=== PATIENT | female | born 1935 | race Two or more races ===

== ENCOUNTER 2024-10-08 15:53 | Emergency (ER) | payer MEDICARE ==
[~2024-10-08] VITALS: Ht 160 cm; Wt 56.7 kg
[2024-10-08] MEDS: IV NS 0.9% 1,000 ML BAG IV ONE (16:25)
[2024-10-08 16:42] LABS: ALANINE AMINOTRANSFERASE 29 U/L (12-78); ALKALINE PHOSPHATASE 54 U/L (46-116); ASPARTATE AMINOTRANSFERASE 22 U/L (15-37); BILIRUBIN,TOTAL 0.5 mg/dL (0.2-1.0); CALCIUM, SERUM 8.2 mg/dL (8.5-10.1); CARBON DIOXIDE 23 mmol/L (21-32); CHLORIDE 105 mmol/L (98-107); GLUCOSE 104 mg/dL (74-106); POTASSIUM 4.5 mmol/L (3.5-5.1); SODIUM SERUM 137 mmol/L (136-145); TOTAL PROTEIN, SERUM 6.4 g/dL (6.4-8.2)
[2024-10-08 16:52] LABS: MAGNESIUM 1.9 mg/dL (1.8-2.4)
[2024-10-08 16:54] LABS: ALBUMIN 3.6 g/dL (3.4-5.0); BILIRUBIN,DIRECT 0.1 mg/dL (0.0-0.2)
[2024-10-08 16:58] LABS: BASOPHILS % (AUTO) 0.6 % (0.0-2.0); EOSINOPHILS # (AUTO) 0.1 K/uL (0.0-0.7); EOSINOPHILS % (AUTO) 1.2 % (0.0-6.0); HEMATOCRIT 35 % (33-45); HEMOGLOBIN 11.9 g/dL (11.5-14.8); LYMPHOCYTES # (AUTO) 1.3 K/uL (0.8-4.8); LYMPHOCYTES % (AUTO) 16.9 % (20.0-44.0); MEAN CORPUSCULAR HEMOGLOBIN 31 PG (26.0-33.0); MEAN CORPUSCULAR HGB CONC 34 g/dl (31.0-36.0); MEAN CORPUSCULAR VOLUME 92 fL (82-100); MONOCYTES # (AUTO) 0.4 K/uL (0.1-1.30); MONOCYTES % (AUTO) 5.7 % (2.0-12.0); NEUTROPHILS # (AUTO) 5.7 K/uL (1.8-8.9); NEUTROPHILS % (AUTO) 75.6 % (43.0-81.0); PLATELET COUNT (AUTO) 150 K/uL (150-450); RED BLOOD CELL COUNT(AUTO) 3.83 MIL/uL (4.0-5.2); RED CELL DISTRIBUTION WIDTH 13.9 % (11.5-15.0); WHITE BLOOD COUNT (AUTO) 7.6 K/uL (4.3-11.0)
[2024-10-08 17:05] LABS: THYROID STIMULATING HORMONE 5.41 uIU/mL (0.358-3.74)
[2024-10-08 17:09] LABS: UREA NITROGEN, BLOOD 18 mg/dL (7-18)
[2024-10-08 18:05] VITALS: BP 118/65; TEMP 98.3; O2SAT 99
== END 2024-10-08 18:05 | disposition home or self-care (01) ==
LOC: ER 16:38
DX: R55 Syncope and collapse (principal); R42 Dizziness and giddiness; R06.03 Acute respiratory distress; R00.1 Bradycardia, unspecified; E03.9 Hypothyroidism, unspecified; E78.00 Pure hypercholesterolemia, unspecified; I10 Essential (primary) hypertension; Z88.5 Allergy status to narcotic agent; Z60.2 Problems related to living alone
CPT/HCPCS: 99285; 96360; 71045; 93005; 85025; 80048; 80076; 83735; 36415; 84439; 84443; 84484; 83880; J7030